=== PATIENT | male | born 1990 | race Caucasian/White ===

== ENCOUNTER → 2024-08-09 | Outpatient (CLI) | payer SELFPAY ==
--- NOTE | 2024-08-09 10:45 | RAD_ITS ---
INDICATION: PNEUMONIA,HYPXEMIA EXAMINATION/TECHNIQUE: X-RAY - XR Chest 2 Views COMPARISON: FINDINGS: LINES/DEVICES: None. LUNGS: No consolidation, edema or effusion. Mild basilar interstitial prominence No pneumothorax. MEDIASTINUM AND CARDIOVASCULAR STRUCTURES: Cardiac silhouette not enlarged. Central airways and mediastinal contour are unremarkable. BONES AND SOFT TISSUES: Unremarkable. RAD/Chest PA and Lateral IMPRESSION: Bilateral basilar interstitial prominence. Electronically Signed: Reji Schaefer DO at 19:32 EST ,
== END | disposition home or self-care (01) ==
DX: J18.9 Pneumonia, unspecified organism (principal); R09.02 Hypoxemia
CPT/HCPCS: 71046